=== PATIENT | male | born 1965 | race Asian ===

== ENCOUNTER 2022-05-09 12:42 | Inpatient (IN) | payer BC ==
[~2022-05-09] VITALS: Ht 180.3 cm; Wt 79.8 kg
[2022-05-09 12:50] VITALS: BP_SYST 110
[2022-05-09 13:55] LABS: BASOPHILS % (AUTO) 0.1 % (0.0-2.0); HEMATOCRIT 29.5 % (36-54); LYMPHOCYTES # (AUTO) 1.5 K/uL (1.0-5.5); LYMPHOCYTES % (AUTO) 12.3 % (20.5-51.5); MEAN CORPUSCULAR HEMOGLOBIN 30 pg (27-31); MEAN CORPUSCULAR HGB CONC 34 % (32-36); MEAN CORPUSCULAR VOLUME 89 fL (79.0-98.0); MONOCYTES # (AUTO) 0.4 K/uL (0.0-1.0); MONOCYTES % (AUTO) 3.5 % (1.7-9.3); NEUTROPHILS # (AUTO) 10.5 K/uL (1.8-7.7); NEUTROPHILS % (AUTO) 84.1 % (40.0-70.0); PLATELET COUNT (AUTO) 254 K/uL (130-430); RED CELL DISTRIBUTION WIDTH 12.9 % (9.0-15.0); WHITE BLOOD COUNT (AUTO) 12.4 K/uL (4.8-10.8)
[2022-05-09 14:13] LABS: CALCIUM 7.3 mg/dL (8.4-11.0); CREATININE 1.45 mg/dL (0.55-1.30); POTASSIUM 4.1 mmol/L (3.5-5.1)
[2022-05-09 14:17] LABS: PROTHROMBIN TIME 10.5 SECS (9.5-12.5)
[2022-05-09 14:18] LABS: ALBUMIN 2.8 g/dL (3.4-4.8); TOTAL BILIRUBIN 0.2 mg/dL (0.0-1.0)
[2022-05-09] MEDS ORDERED: ONDANSETRON HCL 4 MG/2 ML VIAL IVP ONE (14:45)
[2022-05-09] MEDS ORDERED: PANTOPRAZOLE SODIUM 40 MG/VIAL (PROTONIX) IVP ONE (15:30)
[2022-05-09] MEDS ORDERED: ONDANSETRON HCL 4 MG/2 ML VIAL IVP PRN (16:15)
[2022-05-09] MEDS ORDERED: PANTOPRAZOLE SODIUM 40 MG/VIAL (PROTONIX) ONE ×2 (16:33→21:37)
[2022-05-09] MEDS: PANTOPRAZOLE SODIUM 40 MG in NS 50 ML IV SCH ×2 (16:40→21:42)
[2022-05-09] MEDS: NACL 0.9% 1,000 ML IV SCH ×2 (16:41→23:38)
[2022-05-09] MEDS ORDERED: ACETAMINOPHEN 325 MG TABLET PO PRN (17:00)
[2022-05-09] MEDS ORDERED: traMADol HCL HCL 50 MG TABLET (ULTRAM) PO PRN (17:00)
[2022-05-09 17:40] LABS: CALCIUM 7.1 mg/dL (8.4-11.0); CREATININE 1.39 mg/dL (0.55-1.30); POTASSIUM 4.2 mmol/L (3.5-5.1)
[2022-05-09 18:00] LABS: HEMATOCRIT 26.5 % (36-54); HEMOGLOBIN 8.9 g/dL (14.0-18.0); LYMPHOCYTES # (AUTO) 1.7 K/uL (1.0-5.5); LYMPHOCYTES % (AUTO) 14.2 % (20.5-51.5); MEAN CORPUSCULAR HEMOGLOBIN 30 pg (27-31); MEAN CORPUSCULAR HGB CONC 34 % (32-36); MEAN CORPUSCULAR VOLUME 89 fL (79.0-98.0); MONOCYTES # (AUTO) 0.4 K/uL (0.0-1.0); MONOCYTES % (AUTO) 3.2 % (1.7-9.3); NEUTROPHILS # (AUTO) 9.7 K/uL (1.8-7.7); NEUTROPHILS % (AUTO) 82.6 % (40.0-70.0); PLATELET COUNT (AUTO) 216 K/uL (130-430); RED BLOOD CELL COUNT(AUTO) 2.98 MIL/uL (4.2-6.2); RED CELL DISTRIBUTION WIDTH 12.8 % (9.0-15.0); WHITE BLOOD COUNT (AUTO) 11.7 K/uL (4.8-10.8)
[2022-05-09 20:48] VITALS: BP_SYST 131
[2022-05-09] MEDS: TAMSULOSIN HCL 0.4 MG CAP PO SCH (21:41)
[2022-05-09 23:24] LABS: BILIRUBIN,URINE NEGATIVE (NEGATIVE); BLOOD, URINE NEGATIVE (NEGATIVE); CLARITY/URINE CLEAR (CLEAR); COLOR,URINE YELLOW (YELLOW); GLUCOSE,URINE NEGATIVE (NEGATIVE); KETONES,URINE TRACE (NEGATIVE); LEUKOCYTE ESTERASE ,URINE NEGATIVE (NEGATIVE); NITRITE, URINE NEGATIVE (NEGATIVE); PROTEIN URINE NEGATIVE (NEGATIVE); UROBILINOGEN,URINE 0.2 (0.2-1.0)
[2022-05-10 00:02] VITALS: BP_SYST 128
[2022-05-10] MEDS ORDERED: PANTOPRAZOLE SODIUM 40 MG/VIAL (PROTONIX) ONE ×3 (02:02→13:03)
[2022-05-10] MEDS: PANTOPRAZOLE SODIUM 40 MG in NS 50 ML IV SCH ×4 (02:11→18:47)
[2022-05-10] MEDS: NACL 0.9% 1,000 ML IV SCH ×3 (05:27→18:46)
[2022-05-10 05:41] LABS: LYMPHOCYTES # (AUTO) 2.2 K/uL (1.0-5.5); MONOCYTES # (AUTO) 0.8 K/uL (0.0-1.0); RED BLOOD CELL COUNT(AUTO) 2.48 MIL/uL (4.2-6.2)
[2022-05-10 05:54] LABS: BASOPHILS % (AUTO) 0.3 % (0.0-2.0); EOSINOPHILS % (AUTO) 0.1 % (0.0-4.0); HEMATOCRIT 22.1 % (36-54); HEMOGLOBIN 7.4 g/dL (14.0-18.0); LYMPHOCYTES % (AUTO) 21.4 % (20.5-51.5); MEAN CORPUSCULAR HEMOGLOBIN 30 pg (27-31); MEAN CORPUSCULAR HGB CONC 34 % (32-36); MEAN CORPUSCULAR VOLUME 89 fL (79.0-98.0); MONOCYTES % (AUTO) 7.5 % (1.7-9.3); NEUTROPHILS # (AUTO) 7.2 K/uL (1.8-7.7); NEUTROPHILS % (AUTO) 70.7 % (40.0-70.0); PLATELET COUNT (AUTO) 209 K/uL (130-430); RED CELL DISTRIBUTION WIDTH 12.7 % (9.0-15.0); WHITE BLOOD COUNT (AUTO) 10.2 K/uL (4.8-10.8)
[2022-05-10 08:00] VITALS: BP_SYST 126
[2022-05-10 08:21] LABS: ALBUMIN 2.4 g/dL (3.4-4.8); CREATININE 1.27 mg/dL (0.55-1.30); POTASSIUM 3.9 mmol/L (3.5-5.1); TOTAL BILIRUBIN 0.1 mg/dL (0.0-1.0)
[2022-05-10] MEDS: TAMSULOSIN HCL 0.4 MG CAP PO SCH ×2 (08:21→21:02)
[2022-05-10] MEDS ORDERED: BENZOCAINE 20% 0.5mL UD SPRAY MM ONE (08:26)
[2022-05-10] MEDS: fentaNYL CITRATE/PF 100 MCG/2 ML AMP ONE ×3 (08:59→09:06)
[2022-05-10] MEDS: MIDAZOLAM HCL 5 MG/5 ML VIAL ONE ×4 (08:59→09:08)
[2022-05-10] MEDS: SOD FERRIC GLUC COMPLEX/SUC 125 MG in NS 100 ML IV SCH (10:00)
[2022-05-10] MEDS ORDERED: MULTIVITAMINS TAB 1 TABLET PO ONE (10:15)
[2022-05-10 16:00] VITALS: BP_SYST 125
[2022-05-10] MEDS: SUCRALFATE 1 GM TABLET PO SCH ×2 (17:10→21:02)
[2022-05-10 20:14] VITALS: BP_SYST 112
[2022-05-10] MEDS: MULTIVITAMINS TAB 1 TABLET PO SCH (21:02)
[2022-05-11] VITALS: BP_SYST 121
[2022-05-11] MEDS: PANTOPRAZOLE SODIUM 40 MG in NS 50 ML IV SCH ×5 (00:08→20:21)
[2022-05-11] MEDS: SUCRALFATE 1 GM TABLET PO SCH ×4 (06:10→22:10)
[2022-05-11 07:04] LABS: ALBUMIN 1.9 g/dL (3.4-4.8); CREATININE 0.93 mg/dL (0.55-1.30); POTASSIUM 3.3 mmol/L (3.5-5.1); TOTAL BILIRUBIN 0.5 mg/dL (0.0-1.0)
[2022-05-11 07:27] LABS: BASOPHILS % (AUTO) 0.3 % (0.0-2.0); EOSINOPHILS % (AUTO) 0.3 % (0.0-4.0); HEMOGLOBIN 7.1 g/dL (14.0-18.0); LYMPHOCYTES # (AUTO) 1.8 K/uL (1.0-5.5); LYMPHOCYTES % (AUTO) 16.4 % (20.5-51.5); MEAN CORPUSCULAR HEMOGLOBIN 29 pg (27-31); MEAN CORPUSCULAR HGB CONC 34 % (32-36); MEAN CORPUSCULAR VOLUME 87 fL (79.0-98.0); MONOCYTES # (AUTO) 0.8 K/uL (0.0-1.0); MONOCYTES % (AUTO) 7.1 % (1.7-9.3); NEUTROPHILS # (AUTO) 8.3 K/uL (1.8-7.7); NEUTROPHILS % (AUTO) 75.9 % (40.0-70.0); PLATELET COUNT (AUTO) 137 K/uL (130-430); RED BLOOD CELL COUNT(AUTO) 2.41 MIL/uL (4.2-6.2); RED CELL DISTRIBUTION WIDTH 13.8 % (9.0-15.0); WHITE BLOOD COUNT (AUTO) 10.9 K/uL (4.8-10.8)
[2022-05-11 07:51] LABS: CALCIUM 6.9 mg/dL (8.4-11.0)
[2022-05-11 08:32] VITALS: BP_SYST 119
[2022-05-11] MEDS: MULTIVITAMINS TAB 1 TABLET PO SCH ×2 (09:20→20:21)
[2022-05-11] MEDS: TAMSULOSIN HCL 0.4 MG CAP PO SCH ×2 (09:20→20:21)
[2022-05-11] MEDS: SOD FERRIC GLUC COMPLEX/SUC 125 MG in NS 100 ML IV SCH (09:21)
[2022-05-11] MEDS: NACL 0.9% 1,000 ML IV SCH (09:22)
[2022-05-11 10:50] LABS: BASOPHILS % (AUTO) 0.2 % (0.0-2.0); EOSINOPHILS % (AUTO) 0.3 % (0.0-4.0); LYMPHOCYTES # (AUTO) 1.9 K/uL (1.0-5.5); LYMPHOCYTES % (AUTO) 18.5 % (20.5-51.5); MEAN CORPUSCULAR HEMOGLOBIN 30 pg (27-31); MEAN CORPUSCULAR HGB CONC 35 % (32-36); MEAN CORPUSCULAR VOLUME 87 fL (79.0-98.0); MONOCYTES # (AUTO) 0.8 K/uL (0.0-1.0); NEUTROPHILS # (AUTO) 7.6 K/uL (1.8-7.7); PLATELET COUNT (AUTO) 128 K/uL (130-430); RED BLOOD CELL COUNT(AUTO) 2.28 MIL/uL (4.2-6.2); RED CELL DISTRIBUTION WIDTH 14.1 % (9.0-15.0); WHITE BLOOD COUNT (AUTO) 10.4 K/uL (4.8-10.8)
[2022-05-11 11:04] LABS: HEMATOCRIT 19.8 % (36-54); HEMOGLOBIN 6.8 g/dL (14.0-18.0)
[2022-05-11 12:39] VITALS: BP_SYST 120
[2022-05-11] MEDS ORDERED: POTASSIUM CHLORIDE 20 MEQ TAB.PRT.SR PO ONE (14:45)
[2022-05-11] MEDS ORDERED: CHOLECALCIFEROL (VITAMIN D3) 5,000 UNIT TABLET PO ONE (16:00)
[2022-05-11 16:04] VITALS: BP_SYST 118
[2022-05-11] MEDS: CALCIUM CARBONATE 500 MG/ TAB.CHEW PO SCH ×2 (18:26→20:21)
[2022-05-11 20:19] VITALS: BP_SYST 142
[2022-05-12 00:49] VITALS: BP_SYST 101
[2022-05-12] MEDS: PANTOPRAZOLE SODIUM 40 MG in NS 50 ML IV SCH ×4 (01:34→15:25)
[2022-05-12] MEDS: SUCRALFATE 1 GM TABLET PO SCH ×4 (06:25→22:16)
[2022-05-12 06:40] LABS: BASOPHILS % (AUTO) 0.2 % (0.0-2.0); EOSINOPHILS # (AUTO) 0.1 K/uL (0.0-0.4); EOSINOPHILS % (AUTO) 0.9 % (0.0-4.0); HEMOGLOBIN 7.4 g/dL (14.0-18.0); LYMPHOCYTES # (AUTO) 1.4 K/uL (1.0-5.5); LYMPHOCYTES % (AUTO) 17.3 % (20.5-51.5); MEAN CORPUSCULAR HEMOGLOBIN 29 pg (27-31); MEAN CORPUSCULAR HGB CONC 34 % (32-36); MEAN CORPUSCULAR VOLUME 86 fL (79.0-98.0); MONOCYTES # (AUTO) 0.6 K/uL (0.0-1.0); MONOCYTES % (AUTO) 7.6 % (1.7-9.3); NEUTROPHILS # (AUTO) 5.9 K/uL (1.8-7.7); PLATELET COUNT (AUTO) 134 K/uL (130-430); RED CELL DISTRIBUTION WIDTH 14.4 % (9.0-15.0)
[2022-05-12 07:33] LABS: HEMATOCRIT 21.5 % (36-54)
[2022-05-12 07:41] LABS: CREATININE 1.02 mg/dL (0.55-1.30); POTASSIUM 3.2 mmol/L (3.5-5.1); TOTAL BILIRUBIN 0.1 mg/dL (0.0-1.0)
[2022-05-12 08:18] VITALS: BP_SYST 118
[2022-05-12] MEDS: CHOLECALCIFEROL (VITAMIN D3) 5,000 UNIT TABLET PO SCH (09:04)
[2022-05-12] MEDS: MULTIVITAMINS TAB 1 TABLET PO SCH ×2 (09:04→22:15)
[2022-05-12] MEDS: TAMSULOSIN HCL 0.4 MG CAP PO SCH ×2 (09:04→22:15)
[2022-05-12] MEDS: CALCIUM CARBONATE 500 MG/ TAB.CHEW PO SCH ×4 (09:04→22:16)
[2022-05-12 09:14] LABS: CALCIUM 6.8 mg/dL (8.4-11.0)
[2022-05-12] MEDS: SOD FERRIC GLUC COMPLEX/SUC 125 MG in NS 100 ML IV SCH (10:49)
[2022-05-12 12:25] VITALS: BP_SYST 130
[2022-05-12] MEDS ORDERED: POTASSIUM CHLORIDE 20 MEQ TAB.PRT.SR PO ONE (14:00)
[2022-05-12] MEDS: NACL 0.9% 1,000 ML IV SCH (14:57)
[2022-05-12 16:23] VITALS: BP_SYST 134
[2022-05-12 20:00] VITALS: BP_SYST 139
[2022-05-12] MEDS: PANTOPRAZOLE SODIUM 40 MG TAB PO SCH (22:16)
[2022-05-13 00:03] VITALS: BP_SYST 155
[2022-05-13 06:38] LABS: BASOPHILS % (AUTO) 0.3 % (0.0-2.0); EOSINOPHILS # (AUTO) 0.2 K/uL (0.0-0.4); EOSINOPHILS % (AUTO) 1.9 % (0.0-4.0); HEMATOCRIT 24.8 % (36-54); HEMOGLOBIN 8.5 g/dL (14.0-18.0); LYMPHOCYTES # (AUTO) 1.5 K/uL (1.0-5.5); LYMPHOCYTES % (AUTO) 17.9 % (20.5-51.5); MEAN CORPUSCULAR HEMOGLOBIN 30 pg (27-31); MEAN CORPUSCULAR HGB CONC 34 % (32-36); MEAN CORPUSCULAR VOLUME 87 fL (79.0-98.0); MONOCYTES # (AUTO) 0.6 K/uL (0.0-1.0); MONOCYTES % (AUTO) 7.4 % (1.7-9.3); NEUTROPHILS # (AUTO) 5.9 K/uL (1.8-7.7); NEUTROPHILS % (AUTO) 72.5 % (40.0-70.0); PLATELET COUNT (AUTO) 174 K/uL (130-430); RED BLOOD CELL COUNT(AUTO) 2.86 MIL/uL (4.2-6.2); RED CELL DISTRIBUTION WIDTH 14.1 % (9.0-15.0); WHITE BLOOD COUNT (AUTO) 8.1 K/uL (4.8-10.8)
[2022-05-13 06:43] LABS: CALCIUM 7.1 mg/dL (8.4-11.0); CREATININE 1.17 mg/dL (0.55-1.30)
[2022-05-13] MEDS: SUCRALFATE 1 GM TABLET PO SCH ×3 (07:37→16:43)
[2022-05-13 08:00] VITALS: BP_SYST 133
[2022-05-13] MEDS: MULTIVITAMINS TAB 1 TABLET PO SCH (08:40)
[2022-05-13] MEDS: CALCIUM CARBONATE 500 MG/ TAB.CHEW PO SCH ×3 (08:41→16:43)
[2022-05-13] MEDS: PANTOPRAZOLE SODIUM 40 MG TAB PO SCH (08:41)
[2022-05-13] MEDS: CHOLECALCIFEROL (VITAMIN D3) 5,000 UNIT TABLET PO SCH (08:41)
[2022-05-13] MEDS: TAMSULOSIN HCL 0.4 MG CAP PO SCH (08:41)
[2022-05-13] MEDS ORDERED: POTASSIUM CHLORIDE 20 MEQ TAB.PRT.SR PO ONE (11:00)
[2022-05-13] MEDS ORDERED: CHOL500013 PO (11:06)
[2022-05-13] MEDS ORDERED: MULT400T13 PO (11:06)
[2022-05-13] MEDS ORDERED: PRO40 PO (11:06)
[2022-05-13] MEDS ORDERED: SUCR1TAB78 PO (11:06)
[2022-05-13] MEDS ORDERED: CALC500T63 PO (11:06)
[2022-05-13] MEDS ORDERED: TAMS0.4C96 PO (11:06)
[2022-05-13] MEDS ORDERED: POTA-197 PO (11:13)
[2022-05-13] MEDS: SOD FERRIC GLUC COMPLEX/SUC 125 MG in NS 100 ML IV SCH (11:26)
[2022-05-13 13:21] VITALS: BP_SYST 142
[2022-05-13 13:25] VITALS: BP_SYST 142
[2022-05-13 16:00] VITALS: BP_SYST 147
== END 2022-05-13 18:03 | disposition home or self-care (01) | DRG 377 ==
LOC: SED 12:42 → STU 15:59 → SMU 05-12 22:08
PROVIDERS: ADMIT Internal Medicine; ATTEND Internal Medicine
PROC: 30233N1 Transfusion of Nonautologous Red Blood Cells into Peripheral Vein, Percutaneous Approach (ICD-10-PCS; 2022-05-10)
PROC: 0W3P8ZZ Control Bleeding in Gastrointestinal Tract, Via Natural or Artificial Opening Endoscopic (ICD-10-PCS; principal; 2022-05-10 07:30)
PROC: 0DB78ZX Excision of Stomach, Pylorus, Via Natural or Artificial Opening Endoscopic, Diagnostic (ICD-10-PCS; 2022-05-10 07:30)
DX: K92.2 Gastrointestinal hemorrhage, unspecified (principal); N17.0 Acute kidney failure with tubular necrosis; E43 Unspecified severe protein-calorie malnutrition; D62 Acute posthemorrhagic anemia; K80.20 Calculus of gallbladder without cholecystitis without obstruction; N40.0 Benign prostatic hyperplasia without lower urinary tract symptoms; Z20.822 Contact with and (suspected) exposure to COVID-19; E87.6 Hypokalemia; E83.51 Hypocalcemia; Z68.24 Body mass index [BMI] 24.0-24.9, adult; K44.9 Diaphragmatic hernia without obstruction or gangrene
CPT/HCPCS: 36415; 36430; 43239; 43255; 76376; 76700-TC; 80048; 80053; 81003; 82150; 83605; 83690; 84132; 85025; 85610-TC; 85730-TC; 86886; 86900; 86901; 86920; 87081; 88305; 88312; 88313; 96374; 96375; 99285; C9113; G0378; J2250; J2405; J2916; J3010; P9021